=== PATIENT | male | born 1975 | race Caucasian/White ===

== ENCOUNTER 2025-04-24 09:04 | Emergency (ER) | payer BC, SELFPAY ==
[2025-04-24 09:12] VITALS: BP 136/58; PULSE 80; RESP 18; TEMP 36.6; O2SAT 98; BMI 26.8
[2025-04-24 09:32] LABS: Hematocrit 42.7 % (42.0-52.0); Hemoglobin 15.0 g/dl (14.0-18.0); Imm Gran Abs Auto 0.01 X10*3/uL (0.00-0.03); Imm Gran Pct Auto 0.3 % (0.0-0.4); Lymphocytes Absolute Auto 0.9 X10*3/uL (1.2-4.9); MANUAL DIFF FLAG SCAN; Mean Corpuscular HGB Conc 35.1 g/dl (31.0-36.0); Mean Corpuscular Hemoglobin 31.3 pg (27.0-33.0); Mean Corpuscular Volume 89.0 fL (80.0-98.0); NRBC Abs Auto 0.000 X10*3/uL (0.0-0.012); NRBC Pct Auto 0.0 /100WBC (0.0-0.2); Platelet Count 160 X10*3/uL (160-400); Red Blood Count 4.80 X10*6/uL (4.60-5.80); SCAN SMEAR FLAG 1; White Blood Count 3.4 X10*3/uL (4.8-10.8)
[2025-04-24 09:45] LABS: Alanine Aminotransferase 34 U/L (0-40); Albumin Level 4.4 g/dL (3.5-5.0); Alkaline Phosphatase 33 U/L (39-117); Anion Gap 12 (12-20); Aspartate Amino Transferase 34 U/L (5-37); Blood Urea Nitrogen 12 mg/dL (9-16); Calcium 8.8 mg/dL (8.4-10.2); Carbon Dioxide 29 mmol/L (22-29); Chloride 103 mmol/L (96-108); Creatinine Clr Calc Pharmacy 82.0; Estimated Glomerular Filt Rate > 60; Lipase 36 U/L (8-78); Potassium 4.0 mmol/L (3.3-5.1); Sodium 140 mmol/L (135-145); Total Protein 7.2 g/dL (6.5-8.0)
[2025-04-24 10:11] LABS: Resp Syncy Virus RNA Qual PCR NEGATIVE (Negative); SARS COV2 PCR INHOUSE NEGATIVE (Negative)
[2025-04-24 10:51] VITALS: BP 115/69; PULSE 76; RESP 16; TEMP 36.7; O2SAT 100
--- NOTE | 2025-04-24 11:03 | PC.NURSE ---
PT A&O X4 VSS does not want to change into hosp clothes- standing by stretcher awaiting provider. States I don't feel dehydrated or anything- don't want IVF . No complaints at this time.
--- NOTE | 2025-04-24 11:10 | ED.GENADULT ---
HPI - General Adult General Chief complaint: General Medical Stated complaint: Weak, Sweaty, Stomach bug? Dr Sent Time Seen by Provider: 04/24/25 11:08 Source: patient Mode of arrival: ambulatory Limitations: no limitations History of Present Illness ED Provider: Dagmar Santiago PA-C HPI narrative: 50-year-old male without medical history presents to the ED due to steadily improving nausea, chills, cold sweats that began 6 days ago on 04/18/2025. Patient states he woke up night around midnight feeling ?clammy , with chills and a fever of T-max 103.0 that he used a home forehead thermometer strip to check, with 3 episodes of diarrhea, patient states the diarrhea was more like a soft stool instead of large, voluminous and watery. Patient states by Tuesday fever and diarrhea had resolved. He is still experiencing intermittent cold sweats, and chills. Patient has been able to go to the gym to work out, is tolerating eating and drinking well, and using ibuprofen and TheraFlu to manage his symptoms with good effect. Patient is somewhat anxious, said he had a friend who recently came into [facility] and was found to have a ?septic infection? and suddenly . His friends were encouraging him to come in for evaluation due to there friend recently passing from infection. Patient denies any recent travel, antibiotic use. Patient states he feels much better now than he did on Tuesday and symptoms are steadily improving. Patient denies chest pain, shortness of breath, cough, sore throat, congestion, abdominal pain, vomiting, dark/tarry stool, urinary symptoms Related Data Allergies Allergy/AdvReac Type Severity Reaction Status Date / Time No Known Allergies Allergy Verified 04/24/25 09:14 Review of Systems Review of Systems: CONST: Negative for fever, body aches and chills. HENT: Negative for neck pain/stiffness, headache, congestion, sore throat, swelling. EYES: Negative for discharge/pain or vision changes. RESP: Negative for cough/hemoptysis and shortness of breath. CV: Negative chest pain, difficulty breathing, palpitations. ABD: Negative pain, nausea, vomiting. POS, gas, bloating. : Negative increase frequency, dysuria, blood in urine or stool. MUSC: Negative for muscle aches, edema. SKIN: Negative rash, lesions/sores. NEURO: Negative headache, dizziness, weakness. Yes all other systems are reviewed and are negative PMFSH Social History Social History Smoked in Last 30 Days: No Use of substances other than those prescribed or required for medical reasons: No Advance Directives: No Advance Directives Information Provided: Yes Do you have a plan to hurt others: No Plan Physical Exam ED Vital Signs: Vital Signs - 24 hr 04/24/25 09:12 04/24/25 10:51 Temperature 98 F 98.0 F Pulse Rate 80 76 Respiratory Rate 18 16 Blood Pressure 136/58 L 115/69 Pulse Oximetry 98 100 Oxygen Delivery Method Room Air Room Air BMI result Body Mass Index 26.8 GENERAL APPEARANCE: ?AxOx4, generally well-appearing, although patient seems somewhat anxious, rubbing hands together, asking if his BP is okay, stating he is worried due to recent friend passing from septic infection , no acute distress. HEENT: ?NC, AT. MMM. EOMI, clear conjunctiva, oropharynx clear. NECK: ?Supple without lymphadenopathy.? No stiffness or restricted ROM. HEART:? Normal rate and regular rhythm, normal S1/S2, no m/r/g LUNGS:? CTAB, moving air well. No crackles or wheezes are heard. ABDOMEN: ?Soft, nontender, nondistended with good bowel sounds heard. BACK: No CVAT, no obvious deformity. EXTREMITIES: ?Without cyanosis, clubbing or edema. NEUROLOGICAL: ?Grossly nonfocal. Alert and oriented, moving all 4 extremities. Observed to ambulate with normal gait. Skin: ?Warm and dry without any rash. Medical Decision Making Medical Decision Making MDM Narrative: 50-year-old male without medical history presents to the ED due to steadily improving nausea, chills, cold sweats that began 6 days ago on 04/18/2025. Patient states he woke up night around midnight feeling ?clammy , with chills and a fever of T-max 103.0 that he used a home forehead thermometer strip to check, with 3 episodes of diarrhea, patient states the diarrhea was more like a soft stool instead of large, voluminous and watery. Patient states by Tuesday fever and diarrhea had resolved. He is still experiencing intermittent cold sweats, and chills. Patient has been able to go to the gym to work out, is tolerating eating and drinking well, and using ibuprofen and TheraFlu to manage his symptoms with good effect. Patient is somewhat anxious, said he had a friend who recently came into [facility] and was found to have a ?septic infection? and suddenly . His friends were encouraging him to come in for evaluation due to there friend recently passing from infection. Patient denies any recent travel, antibiotic use. Patient states he feels much better now than he did on Tuesday and symptoms are steadily improving. VSS, patient is healthy fit looking male, somewhat anxious, rubbing hands together, asking about his blood pressure, states he wants to make sure he is ?okay? due to a friend recently passing from ?septic infection?. Patient is nontoxic appearing, in no acute distress, BP is 115/69, pulse rate of 76, respiratory rate of 16, patient is afebrile with an oral temp of 98.0 degrees, O2 saturation is 100 percent on room air. Physical exam benign, patient's skin is dry and warm, abdomen soft, nontender, nondistended, appropriate bowel sounds heard throughout all 4 quadrants, lungs clear to auscultation bilaterally, cardiac exam with normal rate and rhythm, no murmurs/rubs/gallops. Patient states symptoms have resolved, no episodes of diarrhea, has not been nauseous today. States at night he feels some chills, and just a general ?heaviness?. Patient has been able to work out at the gym, is tolerating p.o. do not believe patient needs stool steady at this time, as patient is not experiencing diarrhea, no recent travel, no recent antibiotic use, no blood in stool, with symptoms steadily improving. Lab work reveals mild leukopenia of 3.4, H&H stable, no signs of electrolyte abnormality, viral serology negative. Will give patient 10mg for gas and bloating. We will discharge patient home for self-care as this is likely a viral illness, with symptoms steadily improving. We will discharge home with prescription of Harvey Cuadra, counseled patient on using 500 milligrams Tylenol, 400 milligrams ibuprofen every 6 hours to control his symptoms until resolved. Patient has PCP, encouraged patient to follow up with PCP. Differential Diagnosis Differential Diagnoses: The differential diagnosis associated with the presentation includes Flu COVID RSV Viral illness Gastritis Admission/Observation Consideration of admission/observation: Escalation of care including admission/observation considered Lab Data [facility] Lab Attestation statement: I reviewed the patient's lab results. 04/24/25 09:25 04/24/25 09:25 Labs: Lab Results 04/24/25 Range/Units 09:25 WBC 3.4 L (4.8-10.8) X10*3/uL RBC 4.80 (4.60-5.80) X10*6/uL Hgb 15.0 (14.0-18.0) g/dl Hct 42.7 (42.0-52.0) % MCV 89.0 (80.0-98.0) fL MCH 31.3 (27.0-33.0) pg MCHC 35.1 (31.0-36.0) g/dl RDW 12.6 (11.0-16.0) % Plt Count 160 (160-400) X10*3/uL MPV 8.8 L (9.4-12.4) fL Immature Gran % (Auto) 0.3 (0.0-0.4) % Neut % (Auto) 46.5 (45-73) % Lymph % (Auto) 26.3 (20-40) % Mckean % (Auto) 25.4 H (2-11) % Eos % (Auto) 0.9 (0-4) % Baso % (Auto) 0.6 (0-2) % Lymph # (Auto) 0.9 L (1.2-4.9) X10*3/uL Mckean # (Auto) 0.9 (0.1-1.2) X10*3/uL Eos # (Auto) 0.0 (0.0-0.4) X10*3/uL Baso # (Auto) 0.0 (0.0-0.2) X10*3/uL Abs Immat Gran (auto) 0.01 (0.00-0.03) X10*3/uL Absolute Neuts (auto) 1.6 L (2.0-8.3) x10*3/uL Absolute Nucleated RBC 0.000 (0.0-0.012) X10*3/uL Nucleated RBC % (auto) 0.0 (0.0-0.2) /100WBC Smear Tech's Comments VERIFIED Sodium 140 (135-145) mmol/L Potassium 4.0 (3.3-5.1) mmol/L Chloride 103 (96-108) mmol/L Carbon Dioxide 29 (22-29) mmol/L Anion Gap 12 (12-20) BUN 12 (9-16) mg/dL Creatinine 1.10 (0.5-1.4) mg/dL Estim Creat Clear Calc 82.0 Estimated GFR > 60 Random Glucose 103 (60-115) mg/dL Calcium 8.8 (8.4-10.2) mg/dL Total Bilirubin 0.3 (0.0-1.0) mg/dL Direct Bilirubin 0.2 (0.0-0.5) mg/dL AST 34 (5-37) U/L ALT 34 (0-40) U/L Alkaline Phosphatase 33 L (39-117) U/L Total Protein 7.2 (6.5-8.0) g/dL Albumin 4.4 (3.5-5.0) g/dL Lipase 36 (8-78) U/L Influenza Type A (PCR) NEGATIVE (Negative) Influenza Type B (PCR) NEGATIVE (Negative) RSV RNA Qual (PCR) NEGATIVE (Negative) SARS-CoV-2 RNA (RT-PCR) NEGATIVE (Negative) External Record Review External record reviewed: Inpatient record, Office record and Outpatient record Prescription Management I considered prescription management with: Antibiotic Considered antibiotic for diarrhea, patient without recent travel, no recent antibiotic use, no blood in stool. Do not believe patient needs antibiotic therapy at this time. Chronic Conditions Patient without medical history, does not take any medications daily. Discharge Plan Discharge Clinical Impression: Viral illness Patient Disposition: Home, Self-Care Instructions: Viral Syndrome (ED) Additional Instructions: You were evaluated in the ED today due to cold sweats, chills, abdominal bloating, episodes of diarrhea. You stated your symptoms are steadily improving. Your lab work revealed a low white blood cell count, this can occur due to your suspected viral illness. There were no signs of electrolyte abnormality. Vital signs ar e stable, Print Language: [place]
[2025-04-24 12:15] VITALS: BP 115/69; PULSE 76; RESP 16; TEMP 36.7; O2SAT 100
== END 2025-04-24 12:16 | disposition home or self-care (01) ==
PROVIDERS: Emergency Provider Emergency Medicine
DX: B34.9 Viral infection, unspecified (principal); R53.1 Weakness; F41.9 Anxiety disorder, unspecified; R14.0 Abdominal distension (gaseous)
CPT/HCPCS: 80048; 80076; 83690; 85025; 87637; 99283; 99284